=== PATIENT | female | born 1995 | race Caucasian/White ===

== ENCOUNTER 2018-02-22 13:28 | Emergency (ER) | payer OTHER ==
[~2018-02-22] VITALS: Ht 170.2 cm; Wt 74.4 kg
[2018-02-22 13:31] VITALS: BP 120/75
[2018-02-22] MEDS ORDERED: KETOROLAC 30 MG/ML VIAL IVP ONE (14:25)
[2018-02-22 14:56] LABS: BASOPHILS # (AUTO) 0.1 K/uL (0.00-0.22); BASOPHILS % (AUTO) 0.9 % (0.0-2.0); EOSINOPHILS # (AUTO) 0.2 K/uL (0-0.4); EOSINOPHILS % (AUTO) 2.5 % (0.0-4.0); HEMATOCRIT 39.9 % (36-48); HEMOGLOBIN 13.6 g/dL (12.0-16.0); LYMPHOCYTES # (AUTO) 2.8 K/uL (2.5-16.5); LYMPHOCYTES % (AUTO) 32.3 % (20.5-51.1); MEAN CORPUSCULAR HEMOGLOBIN 29 pg (27-31); MEAN CORPUSCULAR HGB CONC 34 g/dL (33-37); MEAN CORPUSCULAR VOLUME 86.5 fL (80-94); MONOCYTES # (AUTO) 0.4 K/uL (0.8-1.0); MONOCYTES % (AUTO) 4.8 % (1.7-9.3); NEUTROPHILS # (AUTO) 5.2 K/uL (1.8-7.7); NEUTROPHILS % (AUTO) 59.5 % (42.2-75.2); PLATELET COUNT (AUTO) 291 K/uL (140-450); RED BLOOD CELL COUNT(AUTO) 4.61 MIL/uL (4.20-5.40); RED CELL DISTRIBUTION WIDTH 13.3 % (11.6-13.7); WHITE BLOOD COUNT (AUTO) 8.8 K/uL (4.8-10.8)
[2018-02-22 15:07] LABS: ANION GAP 13.2 (8-16); CARBON DIOXIDE 27.6 mmol/L (21-32); CREATININE 0.7 mg/dL (0.6-1.3); POTASSIUM 3.8 mmol/L (3.5-5.1)
[2018-02-22 15:11] LABS: PROTHROMBIN TIME 11.1 secs (10.8-13.4)
[2018-02-22 15:14] LABS: ALBUMIN 3.6 g/dL (3.4-5.0); TOTAL BILIRUBIN 0.2 mg/dL (0.0-1.0)
[2018-02-22 16:18] VITALS: BP 103/61
== END 2018-02-22 16:17 | disposition home or self-care (01) ==
LOC: MED 13:28
DX: M94.0 Chondrocostal junction syndrome [Tietze] (principal); Z88.0 Allergy status to penicillin
CPT/HCPCS: 36415; 71045; 80053; 84484; 85025; 85610; 85730; 93005; 96374; 99285; J1885

== ENCOUNTER 2020-01-06 19:41 | Emergency (ER) | payer SELFPAY ==
[~2020-01-06] VITALS: Ht 170.2 cm; Wt 73.0 kg
[2020-01-06 19:56] VITALS: BP 112/85
--- NOTE | 2020-01-06 19:59 | NUR ---
PT AMBULATED TO BED 12, STEADY GAIT.
--- NOTE | 2020-01-06 20:00 | NUR ---
24 YO F BIB SELF FOR C/C OF DIZZINESS, DIAPHORESIS, AND 7/10 BILATERAL LEG PAIN. PT STATES THIS IS NEW ONSET AFTER BEGINNING PROPHYLACTIC ABX FOR WISDOM TEETH EXTRACTION. PT BEGAN TAKING CLINDOMYCIN 300 MG QID TODAY. LAST DOSE WAS TODAY AT 1900. PT STATES HER SYMPTOMS BEGAN AFTER TAKING THIS MEDICATION. SKIN CLEAR. NO SKIN ABNORMALITIES VISUALIZED. EQUAL CHEST RISE AND FALL. BED LOCKED AND IN LOWEST POSITION. SIDE RAILS X1. NO MED HX RX: 300 MG CLINDAMYCIN ALLERGIES TO PENICILLIN
[2020-01-06] MEDS ORDERED: ACETAMINOPHEN 325 MG TAB PO ONE (20:15)
[2020-01-06] MEDS ORDERED: IBUPROFEN 600 MG TAB PO ONE (20:15)
--- NOTE | 2020-01-06 20:25 | NUR ---
PT BLOOD SPECIMEN COLLECTED AND TAKEN TO LAB.
[2020-01-06 20:37] LABS: BASOPHILS # (AUTO) 0.1 K/uL (0.00-0.22); BASOPHILS % (AUTO) 0.8 % (0.0-2.0); EOSINOPHILS # (AUTO) 0.2 K/uL (0-0.4); EOSINOPHILS % (AUTO) 1.9 % (0.0-4.0); HEMATOCRIT 44.7 % (36-48); HEMOGLOBIN 14.9 g/dL (12.0-16.0); LYMPHOCYTES # (AUTO) 2.2 K/uL (2.5-16.5); LYMPHOCYTES % (AUTO) 25.6 % (20.5-51.1); MEAN CORPUSCULAR HEMOGLOBIN 31 pg (27-31); MEAN CORPUSCULAR HGB CONC 33 g/dL (33-37); MEAN CORPUSCULAR VOLUME 93.2 fL (80-94); MONOCYTES # (AUTO) 0.4 K/uL (0.8-1.0); MONOCYTES % (AUTO) 4.3 % (1.7-9.3); NEUTROPHILS # (AUTO) 5.9 K/uL (1.8-7.7); NEUTROPHILS % (AUTO) 67.4 % (42.2-75.2); PLATELET COUNT (AUTO) 343 K/uL (140-450); RED CELL DISTRIBUTION WIDTH 13.6 % (11.6-13.7); WHITE BLOOD COUNT (AUTO) 8.7 K/uL (4.8-10.8)
[2020-01-06 20:58] LABS: ALBUMIN 4.2 g/dL (3.4-5.0); ANION GAP 8.9 (8-16); CARBON DIOXIDE 31.8 mmol/L (21-32); CREATININE 0.8 mg/dL (0.6-1.3); POTASSIUM 3.7 mmol/L (3.5-5.1); TOTAL BILIRUBIN 0.3 mg/dL (0.0-1.0)
[2020-01-06 21:20] VITALS: BP 112/85
--- NOTE | 2020-01-06 21:20 | NUR ---
Patient discharged with v/s stable. Written and verbal after care instructions given and explained. Patient verbalized understanding. Ambulatory with steady gait. All questions addressed prior to discharge. Advised to follow up with PMD.
== END 2020-01-06 21:20 | disposition home or self-care (01) ==
LOC: MED 19:41
DX: R42 Dizziness and giddiness (principal); T36.8X5A Adverse effect of other systemic antibiotics, initial encounter; Y92.89 Other specified places as the place of occurrence of the external cause; Z88.0 Allergy status to penicillin
CPT/HCPCS: 36415; 80053; 81002; 81025; 82553; 85025; 99283

== ENCOUNTER 2020-02-20 01:17 | Emergency (ER) | payer SELFPAY ==
[~2020-02-20] VITALS: Ht 170.2 cm; Wt 74.4 kg
[2020-02-20 01:25] VITALS: BP 115/65
--- NOTE | 2020-02-20 01:29 | NUR ---
PT AMBULATED TO BED 06 WITH STEADY GAIT.
--- NOTE | 2020-02-20 01:30 | NUR ---
24 YO F BIB SELF FOR C/C OF 5/10 MCRAE IN THE FRONT AND BACK OF HER HEAD. PER PT MCRAE BEGAN AT 3 PM YESTERDAY AND LASTED ABOUT AN HOUR BUT PAIN RETURNED 30 MIN AGO. PT DENIES ANY VISION CHANGES OR DIZZINESS. PERRLA PRESENT AT 3MM WITH BRISK REACTION. PT DENIES N/V/D, SOB, FEVER, AND TRAVEL. BED LOCKED AND IN LOWEST POSITION. SIDE RAILS X1. ALLERGIES TO PENICILLIN NO MED HX NO RX
--- NOTE | 2020-02-20 01:36 | NUR ---
DR NEWELL AT THE PT BEDSIDE EXAMINING THE PT. PT IS [id number].
[2020-02-20] MEDS ORDERED: KETOROLAC 60 MG/2 ML VIAL IM ONE (01:40)
--- NOTE | 2020-02-20 01:55 | NUR ---
pt refuse toradol shot and wanted ct. and if not she wanted prescription and gohome. Dr Weiss made aware
[2020-02-20 02:13] VITALS: BP 123/81
--- NOTE | 2020-02-20 02:15 | NUR ---
Patient discharged with v/s stable. Written and verbal after care instructions given and explained. Patient alert, oriented and verbalized understanding of instructions. Ambulatory with steady gait. All questions addressed prior to discharge. ID band removed. Patient advised to follow up with PMD. Rx of MOTRIN given. Patient educated on indication of medication including possible reaction and side effects. Opportunity to ask questions provided and answered.Pt walks in steady gait. No c/o dizziness , n/v, or any pain in origins. pt d/c
== END 2020-02-20 02:15 | disposition home or self-care (01) ==
LOC: MERGE 01:17 → MED 01:17
DX: R51 Headache (principal); Z88.0 Allergy status to penicillin
CPT/HCPCS: 96372; 99283; J1885